=== PATIENT | female | born 1955 | race American Indian/Alaskan Native ===

== ENCOUNTER 2021-10-18 18:34 | Emergency (ER) | payer MEDICARE, OTHER ==
--- NOTE | 2021-10-18 23:50 | XRay Report ---
LEFT HAND 2 VIEW(S) INDICATION / CLINICAL INFORMATION: Hand and wrist slammed in door COMPARISON: None available. FINDINGS: BONES / JOINT(S): No acute fracture or subluxation. Mild loss of interphalangeal joint space involvin g PIPs and DIPs of the left hand with minimal narrowing of the first CMC, findings compatible with mi ld osteoarthritis. Mild narrowing of radiocarpal joint space. SOFT TISSUES: No significant abnormality. ADDITIONAL FINDINGS: None. IMPRESSION: 1. No acute fracture. Signer Name: Festus Pham II, MD Signed: 10/18/2021 11:46 PM Workstation Name: [id number]
[2021-10-19] MEDS ORDERED: oxyCODONE /ACETAMINOPHEN 5-325MG TAB PO ONE (00:38)
--- NOTE | 2021-10-19 01:34 | Emergency Department Report ---
ED Upper Extremity Inj HPI - General Chief Complaint: Extremity Injury, Upper Stated Complaint: LT HAND/ARM/WRIST INJURY Time Seen by Provider: 10/19/21 00:15 Source: patient Mode of arrival: Ambulatory Limitations: No Limitations - History of Present Illness Initial Comments: 56-year-old -Russian female presents emerged from complaining of left hand pain secondary to an injury which occurred yesterday. She was playing with her grandkids and accidentally had her hand slammed in a door causing dull throbbing pain which is worse with palpation and range of motion. She noticed some mild swelling and decided come to emergency department get checked out today. No numbness or tingling. MD Complaint: Injury to:: left, hand -: Sudden Place: home Context: direct blow - Related Data Home Medications Medication Instructions Recorded Confirmed Last Taken PARoxetine [Paxil] 10 mg PO DAILY 01/06/15 01/06/15 01/06/15 Rosuvastatin (Nf) [Crestor] 10 mg PO QHS 01/06/15 01/06/15 01/05/15 Verapamil HCl [Verapamil ER] 240 mg PO QDAY 01/06/15 01/06/15 01/06/15 lisinopriL [Zestril] 10 mg PO QDAY 01/06/15 01/06/15 01/06/15 Previous Rx's Medication Instructions Recorded Last Taken Type cloNIDine [Catapres] 0.1 mg PO BID PRN #30 tablet 01/06/15 Unknown Rx Cyclobenzaprine [Flexeril] 10 mg PO Q8HR PRN #15 tablet 02/15/16 Unknown Rx Ibuprofen [Motrin 800 MG tab] 800 mg PO Q8HR PRN #30 tablet 02/15/16 Unknown Rx traMADoL [Ultram 50 MG tab] 50 mg PO Q6HR PRN #15 tablet 02/15/16 Unknown Rx oxyCODONE /ACETAMINOPHEN [Percocet 1 tab PO Q6HR PRN #9 tablet 06/01/16 Unknown Rx 5/325] Allergies Allergy/AdvReac Type Severity Reaction Status Date / Time clarithromycin [From Biaxin] Allergy Itching Verified 01/06/15 14:47 ED Review of Systems ROS: Stated complaint: LT HAND/ARM/WRIST INJURY Other details as noted in HPI Comment: All other systems reviewed and negative ED Past Medical Hx - Past Medical History Previous Medical History?: Yes Hx Hypertension: Yes Additional medical history: High Cholesterol - Surgical History Past Surgical History?: Yes Additional Surgical History: hysterectomy, cervical fusion, x 2 - Social History Smoking Status: Never Smoker Substance Use Type: None - Medications Home Medications: Home Medications Medication Instructions Recorded Confirmed Last Taken Type PARoxetine [Paxil] 10 mg PO DAILY 01/06/15 01/06/15 01/06/15 History Rosuvastatin (Nf) [Crestor] 10 mg PO QHS 01/06/15 01/06/15 01/05/15 History Verapamil HCl [Verapamil ER] 240 mg PO QDAY 01/06/15 01/06/15 01/06/15 History cloNIDine [Catapres] 0.1 mg PO BID PRN #30 tablet 01/06/15 Unknown Rx lisinopriL [Zestril] 10 mg PO QDAY 01/06/15 01/06/15 01/06/15 History Cyclobenzaprine [Flexeril] 10 mg PO Q8HR PRN #15 tablet 02/15/16 Unknown Rx Ibuprofen [Motrin 800 MG tab] 800 mg PO Q8HR PRN #30 tablet 02/15/16 Unknown Rx traMADoL [Ultram 50 MG tab] 50 mg PO Q6HR PRN #15 tablet 02/15/16 Unknown Rx oxyCODONE /ACETAMINOPHEN [Percocet 1 tab PO Q6HR PRN #9 tablet 06/01/16 Unknown Rx 5/325] ED Physical Exam - General Limitations: No Limitations General appearance: alert, in no apparent distress - Head Head exam: Present: atraumatic, normocephalic - Eye Eye exam: Present: normal appearance - ENT ENT exam: Present: mucous membranes moist - Neck Neck exam: Present: normal inspection - Respiratory Respiratory exam: Present: normal lung sounds bilaterally. Absent: respiratory distress - Cardiovascular Cardiovascular Exam: Present: regular rate, normal rhythm. Absent: systolic murmur, diastolic murmur, rubs, gallop - GI/Abdominal GI/Abdominal exam: Present: soft, normal bowel sounds - Extremities Exam Extremities exam: Present: normal inspection, tenderness (Tenderness to left wrist region with palpation. No snuffbox tenderness is noted. The electrical contacts adjuster strength is 5 of 5 full range of motion. Negative Yemi maneuver no fovea sign. Pain with opposed supra supination as well) - Back Exam Back exam: Present: normal inspection - Neurological Exam Neurological exam: Present: alert, oriented X3 - Psychiatric Psychiatric exam: Present: normal affect, normal mood - Skin Skin exam: Present: warm, dry, intact, normal color. Absent: rash ED Course Vital Signs 10/18/21 10/19/21 23:16 00:46 Temperature 98.9 F Pulse Rate 86 Respiratory 20 18 Rate Blood Pressure 114/84 [Right] O2 Sat by Pulse 96 Oximetry Critical care attestation.: If time is entered above; I have spent that time in minutes in the direct care of this critically ill patient, excluding procedure time. ED Disposition Clinical Impression: Contusion of wrist, left Disposition: HOME / SELF CARE / HOMELESS Is pt being admited?: No Does the pt Need Aspirin: No Condition: Stable Instructions: Contusion, [id number], How to Use Cold Therapy Referrals: ANASTASIA LEVIN MD [Staff Physician] - 3-5 Days
[2021-10-19 02:51] VITALS: BP 128/83
== END 2021-10-19 03:24 | disposition home or self-care (01) ==
LOC: ED 18:34
DX: S60.212A Contusion of left wrist, initial encounter (principal); E78.00 Pure hypercholesterolemia, unspecified; I10 Essential (primary) hypertension; Z90.710 Acquired absence of both cervix and uterus; Z88.1 Allergy status to other antibiotic agents; Z98.890 Other specified postprocedural states; Z79.899 Other long term (current) drug therapy; W22.8XXA Striking against or struck by other objects, initial encounter; Y93.89 Activity, other specified; Y92.89 Other specified places as the place of occurrence of the external cause; Y99.8 Other external cause status
CPT/HCPCS: 99283